=== PATIENT | female | born 1930 | race Two or more races ===

== ENCOUNTER → 2016-05-06 | Outpatient (CLI) | payer MEDICARE, OTHER ==
[~2016-05-06] MED LIST: AMLO5TAB2 PO; APIX2.5T OR; ASPI-498 PO; ASPI81CH43 PO; ATOR20TA50 PO; CHOLESTYRAMINE 4 GM POWDER ONE; CHOLESTYRAMINE 4 GM POWDER PO ONE; CLOP75TA41 PO; LISI40TA PO; NITR0.4S29 SL; OXYB5TAB62 PO; POTA-167 PO; RANI25TA PO
[2016-05-06 11:30] VITALS: BP 105/48
[2016-05-06 13:23] VITALS: BP 116/61
== END | disposition home or self-care (01) ==
LOC: CHF HDHVI 11:48
PROVIDERS: ATTEND Internal Medicine Cardiovascular Disease
DX: J44.9 Chronic obstructive pulmonary disease, unspecified (principal)
CPT/HCPCS: 93005; G0463; 93017

== ENCOUNTER → 2016-05-18 | Outpatient (CLI) | payer MEDICARE, OTHER ==
[~2016-05-18] MED LIST changes: -CHOLESTYRAMINE 4 GM POWDER ONE; -CHOLESTYRAMINE 4 GM POWDER PO ONE; +DEXAMETHASONE SOD PHOS 10MG/1ML VIAL INJ ONE; +FURO20TA3 PO; +MIDAZOLAM HCL 1MG/1ML-2 ML VIAL ONE; +ONDANSETRON HCL 4 MG/2 ML VIAL ONE; +fentaNYL CITRATE 100 MCG/2 ML VL ONE
== END | disposition home or self-care (01) ==
LOC: Rad HDHVI 11:58
PROVIDERS: ATTEND Internal Medicine Cardiovascular Disease
DX: R07.89 Other chest pain (principal); R06.02 Shortness of breath; R00.2 Palpitations; I10 Essential (primary) hypertension
CPT/HCPCS: 93306; J1100; J2250; J2405

== ENCOUNTER 2016-05-19 08:41 | Day surgery (SDC) | payer MEDICARE, OTHER ==
[2016-05-18 12:50] LABS: Basophils # (auto) 0 uL; Basophils % (auto) 0.7 % (0.0-2.0); Eosinophils # (auto) 0.2 uL; Eosinophils % (auto) 4.8 % (0.0-7.0); Hematocrit 36.3 % (36.0-46.0); Hemoglobin 11.3 g/dL (12.2-16.2); Lymphocytes # (auto) 1.2 uL; Lymphocytes % (auto) 24.1 % (10.0-50.0); Mean Corpuscular Hemoglobin 29.1 pg (28.0-32.0); Mean Corpuscular Hgb Conc. 31.2 g/dL (32.0-36.0); Mean Corpuscular Volume 93.2 fL (80.0-100.0); Mean Platelet Volume 8.9 fL (7.4-10.4); Monocytes # (auto) 0.3 uL; Monocytes % (auto) 5.9 % (0.0-12.0); Neutrophils # (auto) 3.1 uL; Neutrophils % (auto) 64.5 % (37.0-80.0); Platelet Count (auto) 324 10^3/uL (140-450); White Blood Cell 4.9 10^3/uL (4.4-10.8)
[2016-05-18 13:26] LABS: Albumin 4.1 g/dL (3.4-5.0); BUN/Creatinine Ratio 13.8; Bilirubin, Total 0.6 mg/dL (0.2-1.0); Potassium 3.9 mmol/L (3.5-5.1); Total Protein 7.3 g/dL (6.4-8.2)
[2016-05-18 14:07] LABS: INR 1.04 (0.9-1.15); Partial Thromboplastin Time 27.8 sec (22.64-33.71); Prothrombin Time 10.7 sec (9.37-12.3)
[~2016-05-19] VITALS: Ht 157.5 cm; Wt 59.0 kg
[~2016-05-19 08:41] MED LIST changes: -APIX2.5T OR; -ASPI-498 PO; -ASPI81CH43 PO; -ATOR20TA50 PO; -DEXAMETHASONE SOD PHOS 10MG/1ML VIAL INJ ONE; -MIDAZOLAM HCL 1MG/1ML-2 ML VIAL ONE; -ONDANSETRON HCL 4 MG/2 ML VIAL ONE; -OXYB5TAB62 PO; -RANI25TA PO; -fentaNYL CITRATE 100 MCG/2 ML VL ONE
[2016-05-19] MEDS ORDERED: CLINDAMYCIN 600MG IV 50 ML IV ONE (09:44)
[2016-05-19] MEDS ORDERED: BUPIVACAINE 0.75% INJ 10ML MPV SDV IJ ONE (09:57)
[2016-05-19] MEDS ORDERED: POVIDONE IODINE 10 % TOPICAL OINT 30GM TOP ONE (10:04)
[2016-05-19] MEDS ORDERED: BUPIVACAINE 0.75% INJ 30ML MPF VIAL IJ ONE (10:41)
[2016-05-19] MEDS ORDERED: HYDROmorphone HCL 2 MG/ML VL IV PRN (11:15)
[2016-05-19] MEDS ORDERED: ONDANSETRON HCL 4 MG/2 ML VIAL IV ONE (11:15)
[2016-05-19 11:46] VITALS: BP 118/57
== END 2016-05-19 11:52 | disposition home or self-care (01) ==
LOC: SUR 08:41
PROVIDERS: ATTEND Podiatrist Foot & Ankle Surgery
DX: L03.032 Cellulitis of left toe (principal); L03.031 Cellulitis of right toe; B48.8 Other specified mycoses; H44.9 Unspecified disorder of globe; I10 Essential (primary) hypertension; J43.9 Emphysema, unspecified; Z90.710 Acquired absence of both cervix and uterus; Z90.721 Acquired absence of ovaries, unilateral; F41.9 Anxiety disorder, unspecified; F32.9 Major depressive disorder, single episode, unspecified; Z87.891 Personal history of nicotine dependence; I26.99 Other pulmonary embolism without acute cor pulmonale
CPT/HCPCS: 11750; 28124; 36415; 80053; 85025; 85610; 85730; 88305; 88311; J3490; Q4139

== ENCOUNTER → 2016-06-07 | Outpatient (CLI) | payer MEDICARE, OTHER ==
[~2016-06-07] MED LIST changes: +ADENOSINE 50 MG in GIVE UN-DILUTED 0 ML IV SCH; +ADENOSINE 90 MG/30 ML INJ IV ONE
== END | disposition home or self-care (01) ==
LOC: Rad HDHVI 09:33
PROVIDERS: ATTEND Internal Medicine Cardiovascular Disease
DX: I25.10 Atherosclerotic heart disease of native coronary artery without angina pectoris (principal); I10 Essential (primary) hypertension; E78.00 Pure hypercholesterolemia, unspecified; J44.9 Chronic obstructive pulmonary disease, unspecified
CPT/HCPCS: 78452; 93017; 96374; A9500; J0153; G0463

== ENCOUNTER 2016-07-25 15:59 | Emergency (ER) | payer MEDICARE, OTHER ==
[~2016-07-25] VITALS: Ht 157.5 cm; Wt 56.7 kg
[~2016-07-25 15:59] MED LIST changes: -ADENOSINE 50 MG in GIVE UN-DILUTED 0 ML IV SCH; -ADENOSINE 90 MG/30 ML INJ IV ONE
[2016-07-25 16:06] VITALS: BP 111/56
[2016-07-25] MEDS ORDERED: BACITRACIN-POLYMYXIN B TOPICAL OINT UD TOP ONE ×2 (16:59→17:15)
== END 2016-07-25 17:07 | disposition home or self-care (01) ==
LOC: ER 15:59
DX: S61.216A Laceration without foreign body of right little finger without damage to nail, initial encounter (principal); I50.9 Heart failure, unspecified; Z98.61 Coronary angioplasty status; Z88.0 Allergy status to penicillin; Z88.1 Allergy status to other antibiotic agents; Z91.018 Allergy to other foods; W25.XXXA Contact with sharp glass, initial encounter; Y93.89 Activity, other specified; Y99.8 Other external cause status; Y92.89 Other specified places as the place of occurrence of the external cause; I48.91 Unspecified atrial fibrillation
CPT/HCPCS: 12002

== ENCOUNTER → 2016-10-27 | Outpatient (CLI) | payer MEDICARE, OTHER | END | disposition home or self-care (01) | LOC: Rad HDHVI 08:55 | PROVIDERS: ATTEND Internal Medicine Cardiovascular Disease | DX: M25.552 Pain in left hip (principal); M25.551 Pain in right hip ==

== ENCOUNTER → 2016-12-16 | Outpatient (CLI) | payer MEDICARE ==
[~2016-12-16] MED LIST changes: +CYANOCOBALAMIN (B-12) 1000 MCG/1 ML VIAL IM ONE; +CYANOCOBALAMIN (B-12) 1000 MCG/1 ML VIAL ONE; +MVI in SODIUM CHLORIDE 0.9% 1,000 ML IVB ONE; +MVI in SODIUM CHLORIDE 0.9% 1,010 ML ONE
[2016-12-16 13:58] LABS: Basophils # (auto) 0 uL; Basophils % (auto) 0.6 % (0.0-2.0); CONDITION Y; Eosinophils # (auto) 0.2 uL; Eosinophils % (auto) 3.3 % (0.0-7.0); Hematocrit 34.3 % (36.0-46.0); Hemoglobin 11.5 g/dL (12.2-16.2); Lymphocytes # (auto) 1.2 uL; Lymphocytes % (auto) 24.9 % (10.0-50.0); Mean Corpuscular Hemoglobin 31.4 pg (28.0-32.0); Mean Corpuscular Hgb Conc. 33.5 g/dL (32.0-36.0); Mean Corpuscular Volume 93.7 fL (80.0-100.0); Mean Platelet Volume 8.4 fL (7.4-10.4); Monocytes # (auto) 0.4 uL; Monocytes % (auto) 8.2 % (0.0-12.0); Platelet Count (auto) 305 10^3/uL (140-450); Red Cell Distribution Width 14.1 % (11.6-16.0); White Blood Cell 4.7 10^3/uL (4.4-10.8)
[2016-12-16 14:09] LABS: BUN/Creatinine Ratio 15.9; Calcium 9.1 mg/dL (8.5-10.1); Potassium 3.9 mmol/L (3.5-5.1)
[2016-12-16 15:45] VITALS: BP 134/66
== END | disposition home or self-care (01) ==
LOC: CHF HDHVI 13:06
PROVIDERS: ATTEND Internal Medicine Cardiovascular Disease
DX: R55 Syncope and collapse (principal); E86.0 Dehydration
CPT/HCPCS: 36415; 80048; 85025; 96365; 96366; G0463; J3411; J3420; J3475

== ENCOUNTER → 2016-12-24 | Outpatient (CLI) | payer MEDICARE ==
[~2016-12-24] MED LIST changes: -CYANOCOBALAMIN (B-12) 1000 MCG/1 ML VIAL IM ONE; -CYANOCOBALAMIN (B-12) 1000 MCG/1 ML VIAL ONE; -MVI in SODIUM CHLORIDE 0.9% 1,000 ML IVB ONE; -MVI in SODIUM CHLORIDE 0.9% 1,010 ML ONE
== END | disposition home or self-care (01) ==
LOC: Rad HDHVI 10:03
PROVIDERS: ATTEND Internal Medicine Cardiovascular Disease
DX: I25.119 Atherosclerotic heart disease of native coronary artery with unspecified angina pectoris (principal); R42 Dizziness and giddiness; J44.9 Chronic obstructive pulmonary disease, unspecified; Z95.5 Presence of coronary angioplasty implant and graft
CPT/HCPCS: 93306

== ENCOUNTER → 2016-12-31 | Outpatient (CLI) | payer MEDICARE ==
[~2016-12-31] MED LIST changes: +ADENOSINE 46 MG in GIVE UN-DILUTED 0 ML IV ONE; +ADENOSINE 90 MG/30 ML INJ IV ONE
== END | disposition home or self-care (01) ==
LOC: Rad HDHVI 08:46
PROVIDERS: ATTEND Internal Medicine Cardiovascular Disease
DX: I25.10 Atherosclerotic heart disease of native coronary artery without angina pectoris (principal); I11.0 Hypertensive heart disease with heart failure; I50.9 Heart failure, unspecified; E78.00 Pure hypercholesterolemia, unspecified; J44.9 Chronic obstructive pulmonary disease, unspecified; Z95.5 Presence of coronary angioplasty implant and graft
CPT/HCPCS: 78452; 93005; 96374; 96375; A9500; J0153

== ENCOUNTER → 2017-01-28 | Outpatient (CLI) | payer MEDICARE ==
[~2017-01-28] MED LIST changes: -ADENOSINE 46 MG in GIVE UN-DILUTED 0 ML IV ONE; -ADENOSINE 90 MG/30 ML INJ IV ONE
== END | disposition home or self-care (01) ==
LOC: Rad HDHVI 15:03
PROVIDERS: ATTEND Internal Medicine Cardiovascular Disease
DX: I05.0 Rheumatic mitral stenosis (principal); I06.0 Rheumatic aortic stenosis
CPT/HCPCS: 93306

== ENCOUNTER → 2017-02-09 | Outpatient (CLI) | payer MEDICARE ==
[~2017-02-09] MED LIST changes: +APIX2.5T OR; +ASPI81TA27 PO; +ATOR20TA50 PO; +OMEP40CA33 PO; +OXYB15TA12 PO; +RANI300T3 PO
[2017-02-09 12:40] VITALS: BP 131/62
[2017-02-09 16:24] LABS: INR 0.95 (0.9-1.15); Partial Thromboplastin Time 25.9 sec (22.64-33.71); Prothrombin Time 10.4 sec (9.37-12.3)
[2017-02-09 16:35] LABS: BUN/Creatinine Ratio 19.5; Potassium 4.1 mmol/L (3.5-5.1)
[2017-02-09 16:37] LABS: Basophils # (auto) 0.1 uL; Eosinophils # (auto) 0.2 uL; Hemoglobin 11.7 g/dL (12.2-16.2); Lymphocytes # (auto) 1.2 uL; Lymphocytes % (auto) 20.9 % (10.0-50.0); Mean Corpuscular Hemoglobin 31.3 pg (28.0-32.0); Mean Corpuscular Hgb Conc. 33.5 g/dL (32.0-36.0); Mean Corpuscular Volume 93.6 fL (80.0-100.0); Mean Platelet Volume 8.5 fL (6.9-10.8); Monocytes # (auto) 0.4 uL; Monocytes % (auto) 6.3 % (0.0-12.0); Neutrophils # (auto) 3.8 uL; Neutrophils % (auto) 67.8 % (37.0-80.0); Nucleated Red Blood Cells % 0.1 %; Platelet Count (auto) 292 10^3/uL (140-450); Red Cell Distribution Width 14.8 % (11.8-14.3); White Blood Cell 5.6 10^3/uL (4.4-10.8)
== END | disposition home or self-care (01) ==
LOC: RADONC 12:42
PROVIDERS: ATTEND Internal Medicine Cardiovascular Disease
DX: Z01.810 Encounter for preprocedural cardiovascular examination (principal); I10 Essential (primary) hypertension; D64.9 Anemia, unspecified; R79.1 Abnormal coagulation profile
CPT/HCPCS: 36415; 80048; 85025; 85610; 85730; 93005; G0463

== ENCOUNTER → 2017-02-10 | Day surgery (SDC) | payer MEDICARE ==
[~2017-02-10] VITALS: Ht 157.5 cm; Wt 54.4 kg
[~2017-02-10] MED LIST changes: +ANGIOMAX 250 MG VIAL IV ONE; +IOHEXOL 350 MG/ML 100ML IJ ONE; +LIDOCAINE 2%HCL (LOCAL ANESTH.) INJ 20ML MDV ONE; +MIDAZOLAM HCL 1MG/1ML-2 ML VIAL ONE; +SODIUM CHL 0.9% 0 ML ONE; +fentaNYL CITRATE 100 MCG/2 ML VL ONE
== END | disposition home or self-care (01) ==
LOC: CATH 08:59
PROVIDERS: ATTEND Internal Medicine Cardiovascular Disease
DX: I25.10 Atherosclerotic heart disease of native coronary artery without angina pectoris (principal); Z95.5 Presence of coronary angioplasty implant and graft; I10 Essential (primary) hypertension; J44.9 Chronic obstructive pulmonary disease, unspecified; R94.39 Abnormal result of other cardiovascular function study; E78.5 Hyperlipidemia, unspecified; J43.9 Emphysema, unspecified; Z90.710 Acquired absence of both cervix and uterus; Z90.721 Acquired absence of ovaries, unilateral; F41.9 Anxiety disorder, unspecified; F32.9 Major depressive disorder, single episode, unspecified; F10.99 Alcohol use, unspecified with unspecified alcohol-induced disorder; Z87.891 Personal history of nicotine dependence
CPT/HCPCS: 93458; C1769; C1887; C1894; J1644; J2250; J3010; J7030; Q9967

== ENCOUNTER 2017-05-20 16:53 | Inpatient (IN) | payer MEDICARE ==
[~2017-05-20] VITALS: Ht 157.5 cm; Wt 51.4 kg
[~2017-05-20 16:53] MED LIST changes: -KETOROLAC TROMETH 30 MG/ML 1ML VIAL IV ONE; -KETOROLAC TROMETH 60MG/2ML VIAL IM ONE; -MVI in SODIUM CHLORIDE 0.9% 1,000 ML IVB ONE; -MVI in SODIUM CHLORIDE 0.9% 1,010 ML ONE; -ONDANSETRON HCL 4 MG/2 ML VIAL IV ONE; -ONDANSETRON HCL 4 MG/2 ML VIAL ONE
[2017-05-20] MEDS ORDERED: MORPHINE SULFATE 4 MG/ML SYR/VIAL IV PRN (17:30)
[2017-05-20] MEDS ORDERED: ONDANSETRON HCL 4 MG/2 ML VIAL IV PRN (17:30)
[2017-05-20] MEDS ORDERED: NITROGLYCERIN 0.4 MG SL TAB SL PRN (17:30)
[2017-05-20] MEDS: D5W/SOD CHLO 0.9% 1,000 ML IV SCH (17:40)
[2017-05-20 17:48] VITALS: BP 131/74
[2017-05-20] MEDS: HYDROcodone-ACET 5/325MG TAB PO PRN (21:55)
[2017-05-20 22:00] VITALS: BP 133/61
[2017-05-21] MEDS: D5W/SOD CHLO 0.9% 1,000 ML IV SCH ×3 (03:31→22:51)
[2017-05-21 05:56] VITALS: BP 113/52
[2017-05-21 07:10] LABS: Basophils # (auto) 0.1 uL; Basophils % (auto) 1.2 % (0.0-2.0); Eosinophils # (auto) 0.3 uL; Eosinophils % (auto) 5.3 % (0.0-7.0); Hemoglobin 10.7 g/dL (12.2-16.2); Lymphocytes # (auto) 1.4 uL; Lymphocytes % (auto) 27.1 % (10.0-50.0); Mean Corpuscular Hemoglobin 30.5 pg (28.0-32.0); Mean Corpuscular Hgb Conc. 33.3 g/dL (32.0-36.0); Mean Corpuscular Volume 91.8 fL (80.0-100.0); Monocytes # (auto) 0.4 uL; Monocytes % (auto) 7.7 % (0.0-12.0); Neutrophils # (auto) 3.1 uL; Neutrophils % (auto) 58.7 % (37.0-80.0); Platelet Count (auto) 308 10^3/uL (140-450); Red Blood Cells 3.49 10^6/uL (4.0-5.20); Red Cell Distribution Width 13.8 % (11.8-14.3); White Blood Cell 5.3 10^3/uL (4.4-10.8)
[2017-05-21 07:31] LABS: BUN/Creatinine Ratio 20.3; Calcium 8.1 mg/dL (8.5-10.1); Potassium 3.6 mmol/L (3.5-5.1)
[2017-05-21] MEDS: CLOPIDOGREL BISULFATE 75 MG TAB PO SCH (09:12)
[2017-05-21] MEDS: amLODIPine BESYLATE 5 MG TAB PO SCH (09:12)
[2017-05-21] MEDS: LISINOPRIL 20 MG TAB PO SCH (09:12)
[2017-05-21 09:41] VITALS: BP 128/66
[2017-05-21] MEDS: DOCUSATE SOD 100 MG CAP PO PRN ×2 (10:59→22:51)
[2017-05-21] MEDS: HYDROcodone-ACET 5/325MG TAB PO PRN ×2 (12:10→19:47)
[2017-05-21 12:56] VITALS: BP 123/56
[2017-05-21 17:00] VITALS: BP 121/60
[2017-05-21] MEDS ORDERED: methylPREDNISolone SOD SUCC 125 MG/2 ML VL IV ONE (19:15)
[2017-05-21 22:00] VITALS: BP 147/67
[2017-05-22 05:35] VITALS: BP 134/64
[2017-05-22] MEDS: HYDROcodone-ACET 5/325MG TAB PO PRN ×3 (06:36→23:13)
[2017-05-22 08:00] VITALS: BP 124/56
[2017-05-22 09:00] VITALS: BP 124/56
[2017-05-22] MEDS: CLOPIDOGREL BISULFATE 75 MG TAB PO SCH (09:39)
[2017-05-22] MEDS: LISINOPRIL 20 MG TAB PO SCH (09:40)
[2017-05-22] MEDS: amLODIPine BESYLATE 5 MG TAB PO SCH (09:40)
[2017-05-22] MEDS: D5W/SOD CHLO 0.9% 1,000 ML IV SCH (09:41)
[2017-05-22 13:00] VITALS: BP 123/77
[2017-05-22 17:00] VITALS: BP 154/69
[2017-05-22 21:46] VITALS: BP 150/77
[2017-05-22] MEDS: DOCUSATE SOD 100 MG CAP PO PRN (23:18)
[2017-05-23 04:45] VITALS: BP 137/64
[2017-05-23] MEDS: HYDROcodone-ACET 5/325MG TAB PO PRN ×2 (08:03→21:10)
[2017-05-23 08:22] VITALS: BP 157/82
[2017-05-23 09:00] VITALS: BP 157/82
[2017-05-23] MEDS: CLOPIDOGREL BISULFATE 75 MG TAB PO SCH (09:37)
[2017-05-23] MEDS: amLODIPine BESYLATE 5 MG TAB PO SCH (09:37)
[2017-05-23] MEDS: LISINOPRIL 20 MG TAB PO SCH (09:38)
[2017-05-23 13:00] VITALS: BP 151/59
[2017-05-23 16:27] VITALS: BP 135/69
[2017-05-23] MEDS ORDERED: EPOETIN ALFA 4,000 UNIT/ML VL SC ONE ×2 (17:00→20:00)
[2017-05-23 17:48] LABS: Basophils # (auto) 0 uL; Basophils % (auto) 0.6 % (0.0-2.0); Eosinophils # (auto) 0.2 uL; Eosinophils % (auto) 2.6 % (0.0-7.0); Hematocrit 34.6 % (36.0-46.0); Hemoglobin 11.3 g/dL (12.2-16.2); Lymphocytes # (auto) 1.4 uL; Lymphocytes % (auto) 16.8 % (10.0-50.0); Mean Corpuscular Hemoglobin 29.5 pg (28.0-32.0); Mean Corpuscular Hgb Conc. 32.6 g/dL (32.0-36.0); Mean Corpuscular Volume 90.6 fL (80.0-100.0); Monocytes # (auto) 0.5 uL; Monocytes % (auto) 5.9 % (0.0-12.0); Neutrophils # (auto) 6.3 uL; Neutrophils % (auto) 74.1 % (37.0-80.0); Nucleated Red Blood Cells % 0.1 %; Platelet Count (auto) 362 10^3/uL (140-450); Red Blood Cells 3.82 10^6/uL (4.0-5.20); Red Cell Distribution Width 14.5 % (11.8-14.3); White Blood Cell 8.5 10^3/uL (4.4-10.8)
[2017-05-23 18:04] LABS: BUN/Creatinine Ratio 18.9; Calcium 8.5 mg/dL (8.5-10.1); Potassium 3.5 mmol/L (3.5-5.1)
[2017-05-23 21:40] VITALS: BP 131/70
[2017-05-24 04:35] VITALS: BP 142/69
[2017-05-24 09:00] VITALS: BP 123/66
[2017-05-24] MEDS: HYDROcodone-ACET 5/325MG TAB PO PRN ×2 (09:24→16:21)
[2017-05-24] MEDS: CLOPIDOGREL BISULFATE 75 MG TAB PO SCH (09:25)
[2017-05-24] MEDS: amLODIPine BESYLATE 5 MG TAB PO SCH (09:25)
[2017-05-24] MEDS: LISINOPRIL 20 MG TAB PO SCH (09:26)
[2017-05-24 13:00] VITALS: BP 110/60
[2017-05-24 13:10] VITALS: BP 123/66
[2017-05-24 17:00] VITALS: BP 142/69
== END 2017-05-24 17:29 | disposition home health service (06) | DRG 391 ==
LOC: TELE-CENTR 16:53 → CENTRAL 17:57
PROVIDERS: ADMIT Internal Medicine Cardiovascular Disease; ATTEND Internal Medicine Cardiovascular Disease
DX: K52.9 Noninfective gastroenteritis and colitis, unspecified (principal); J96.90 Respiratory failure, unspecified, unspecified whether with hypoxia or hypercapnia; E46 Unspecified protein-calorie malnutrition; E86.9 Volume depletion, unspecified; D64.9 Anemia, unspecified; J44.9 Chronic obstructive pulmonary disease, unspecified; E86.1 Hypovolemia; I10 Essential (primary) hypertension; M54.5 Low back pain; I25.10 Atherosclerotic heart disease of native coronary artery without angina pectoris; M19.90 Unspecified osteoarthritis, unspecified site; Z68.20 Body mass index [BMI] 20.0-20.9, adult; Z88.1 Allergy status to other antibiotic agents; Z88.0 Allergy status to penicillin; Z91.018 Allergy to other foods; Z87.891 Personal history of nicotine dependence
CPT/HCPCS: 36415; 72131; 73700; 80048; 80053; 83735; 85025; 87081; 96365; 96366; 96374; 96375; G0463; J1885; J2405; J7042

== ENCOUNTER → 2017-05-20 | Outpatient (CLI) | payer MEDICARE ==
[~2017-05-20] VITALS: Ht 30.5 cm; Wt 0.5 kg
[~2017-05-20] MED LIST changes: -ANGIOMAX 250 MG VIAL IV ONE; -FURO20TA3 PO; -IOHEXOL 350 MG/ML 100ML IJ ONE; +KETOROLAC TROMETH 30 MG/ML 1ML VIAL IV ONE; +KETOROLAC TROMETH 60MG/2ML VIAL IM ONE; -LIDOCAINE 2%HCL (LOCAL ANESTH.) INJ 20ML MDV ONE; -MIDAZOLAM HCL 1MG/1ML-2 ML VIAL ONE; +MVI in SODIUM CHLORIDE 0.9% 1,000 ML IVB ONE; +MVI in SODIUM CHLORIDE 0.9% 1,010 ML ONE; +ONDANSETRON HCL 4 MG/2 ML VIAL IV ONE; +ONDANSETRON HCL 4 MG/2 ML VIAL ONE; -POTA-167 PO; -SODIUM CHL 0.9% 0 ML ONE; -fentaNYL CITRATE 100 MCG/2 ML VL ONE
[2017-05-20 10:00] VITALS: BP 129/52
[2017-05-20 11:59] LABS: Basophils # (auto) 0 uL; Basophils % (auto) 0.7 % (0.0-2.0); Eosinophils # (auto) 0.2 uL; Eosinophils % (auto) 3.3 % (0.0-7.0); Hematocrit 34.3 % (36.0-46.0); Hemoglobin 11.3 g/dL (12.2-16.2); Lymphocytes # (auto) 0.8 uL; Lymphocytes % (auto) 12.3 % (10.0-50.0); Mean Corpuscular Hemoglobin 30.3 pg (28.0-32.0); Mean Corpuscular Hgb Conc. 32.9 g/dL (32.0-36.0); Mean Corpuscular Volume 91.9 fL (80.0-100.0); Monocytes # (auto) 0.4 uL; Monocytes % (auto) 5.8 % (0.0-12.0); Neutrophils # (auto) 5.2 uL; Neutrophils % (auto) 77.9 % (37.0-80.0); Nucleated Red Blood Cells % 0.1 %; Platelet Count (auto) 332 10^3/uL (140-450); Red Blood Cells 3.73 10^6/uL (4.0-5.20); Red Cell Distribution Width 13.8 % (11.8-14.3); White Blood Cell 6.6 10^3/uL (4.4-10.8)
[2017-05-20 12:13] LABS: Albumin 3.5 g/dL (3.4-5.0); BUN/Creatinine Ratio 18.8; Bilirubin, Total 0.4 mg/dL (0.2-1.0); Calcium 8.8 mg/dL (8.5-10.1); Magnesium 2.5 mg/dL (1.6-2.6); Potassium 4.3 mmol/L (3.5-5.1); Total Protein 6.9 g/dL (6.4-8.2)
[2017-05-20 15:51] VITALS: BP 140/55
== END | disposition home or self-care (01) ==
LOC: CHF HDHVI 09:54
PROVIDERS: ATTEND Internal Medicine Cardiovascular Disease
DX: E83.42 Hypomagnesemia (principal); I10 Essential (primary) hypertension; D64.9 Anemia, unspecified
CPT/HCPCS: 36415; 72131; 73700; 80053; 83735; 85025; 96365; 96366; 96374; 96375; G0463; J1885; J2405

== ENCOUNTER → 2017-06-06 | Outpatient (CLI) | payer MEDICARE ==
[2017-06-06 12:50] VITALS: BP 127/55
[2017-06-06 14:16] VITALS: BP 129/52
== END | disposition home or self-care (01) ==
LOC: Rad HDHVI 13:03
PROVIDERS: ATTEND Internal Medicine Cardiovascular Disease
DX: K57.30 Diverticulosis of large intestine without perforation or abscess without bleeding (principal); I70.0 Atherosclerosis of aorta; J84.10 Pulmonary fibrosis, unspecified; J43.9 Emphysema, unspecified; Z90.49 Acquired absence of other specified parts of digestive tract; Z91.81 History of falling
CPT/HCPCS: 74176; G0463

== ENCOUNTER → 2017-10-07 | Outpatient (CLI) | payer MEDICARE | END | disposition home or self-care (01) | LOC: Rad HDHVI 09:20 | PROVIDERS: ATTEND Internal Medicine Cardiovascular Disease | DX: M25.462 Effusion, left knee (principal); M85.88 Other specified disorders of bone density and structure, other site; M17.12 Unilateral primary osteoarthritis, left knee | CPT/HCPCS: 73562 ==

== ENCOUNTER → 2017-11-09 | Outpatient (CLI) | payer MEDICARE ==
[~2017-11-09] MED LIST changes: +AMLO5TAB13 PO; -AMLO5TAB2 PO; +KETOROLAC TROMETH 60MG/2ML VIAL IM ONE; +MVI in SODIUM CHLORIDE 0.9% 1,000 ML IVB ONE; +MVI in SODIUM CHLORIDE 0.9% 1,010 ML ONE
[2017-11-09 12:04] LABS: Basophils # (auto) 0 uL; Eosinophils # (auto) 0.1 uL; Eosinophils % (auto) 1.8 % (0.0-7.0); Hematocrit 33.3 % (36.0-46.0); Hemoglobin 11.1 g/dL (12.2-16.2); Lymphocytes # (auto) 0.8 uL; Lymphocytes % (auto) 16.7 % (10.0-50.0); Mean Corpuscular Hemoglobin 28.9 pg (28.0-32.0); Mean Corpuscular Hgb Conc. 33.3 g/dL (32.0-36.0); Mean Corpuscular Volume 86.9 fL (80.0-100.0); Monocytes # (auto) 0.4 uL; Monocytes % (auto) 8.6 % (0.0-12.0); Neutrophils # (auto) 3.5 uL; Neutrophils % (auto) 71.9 % (37.0-80.0); Platelet Count (auto) 342 10^3/uL (140-450); Red Blood Cells 3.84 10^6/uL (4.0-5.20); White Blood Cell 4.9 10^3/uL (4.4-10.8)
[2017-11-09 12:26] LABS: Albumin 3.3 g/dL (3.4-5.0); BUN/Creatinine Ratio 13.8; Bilirubin, Total 0.4 mg/dL (0.2-1.0); Calcium 8.6 mg/dL (8.5-10.1); Magnesium 2.5 mg/dL (1.6-2.6); Potassium 4.4 mmol/L (3.5-5.1); Total Protein 6.4 g/dL (6.4-8.2)
[2017-11-09 14:05] VITALS: BP 158/79
== END | disposition home or self-care (01) ==
LOC: CHF HDHVI 09:42
PROVIDERS: ATTEND Internal Medicine Cardiovascular Disease
DX: E86.0 Dehydration (principal); E83.40 Disorders of magnesium metabolism, unspecified; M17.12 Unilateral primary osteoarthritis, left knee; D64.9 Anemia, unspecified; I11.0 Hypertensive heart disease with heart failure; I50.9 Heart failure, unspecified; J44.9 Chronic obstructive pulmonary disease, unspecified; Z79.899 Other long term (current) drug therapy; Z87.891 Personal history of nicotine dependence; Z90.710 Acquired absence of both cervix and uterus
CPT/HCPCS: 36415; 80053; 83735; 85025; 96365; 96366; 96372; 96375; G0463; J1885; J3411; J3475

== ENCOUNTER → 2017-12-16 | Outpatient (CLI) | payer MEDICARE ==
[~2017-12-16] MED LIST changes: -AMLO5TAB13 PO; +AMLO5TAB2 PO; +IOHEXOL 350 MG/ML 100ML IJ ONE; -KETOROLAC TROMETH 60MG/2ML VIAL IM ONE; -MVI in SODIUM CHLORIDE 0.9% 1,000 ML IVB ONE; -MVI in SODIUM CHLORIDE 0.9% 1,010 ML ONE
[2017-12-16 11:10] VITALS: BP 120/54
[2017-12-16 11:45] VITALS: BP 147/78
== END | disposition home or self-care (01) ==
LOC: Rad HDHVI 10:59
PROVIDERS: ATTEND Internal Medicine Cardiovascular Disease
DX: I67.82 Cerebral ischemia (principal); M85.88 Other specified disorders of bone density and structure, other site; M17.12 Unilateral primary osteoarthritis, left knee; J44.9 Chronic obstructive pulmonary disease, unspecified; I11.0 Hypertensive heart disease with heart failure; I50.9 Heart failure, unspecified; Z87.891 Personal history of nicotine dependence; Z79.899 Other long term (current) drug therapy; Z90.710 Acquired absence of both cervix and uterus
CPT/HCPCS: 70470; 73700; 82565; G0463; Q9967

== ENCOUNTER → 2017-12-26 | Outpatient (CLI) | payer MEDICARE ==
[~2017-12-26] MED LIST changes: +AMLO5TAB13 PO; -AMLO5TAB2 PO; -IOHEXOL 350 MG/ML 100ML IJ ONE; +MVI in SODIUM CHLORIDE 0.9% 1,010 ML ONE; +MVI in SODIUM CHLORIDE 0.9% 500 ML IVB ONE
[2017-12-26 15:33] VITALS: BP 119/65
== END | disposition home or self-care (01) ==
LOC: CHF HDHVI 13:20
PROVIDERS: ATTEND Internal Medicine Cardiovascular Disease
DX: R55 Syncope and collapse (principal); R51 Headache; R42 Dizziness and giddiness; I11.0 Hypertensive heart disease with heart failure; I50.9 Heart failure, unspecified; I25.10 Atherosclerotic heart disease of native coronary artery without angina pectoris; J44.9 Chronic obstructive pulmonary disease, unspecified; M17.12 Unilateral primary osteoarthritis, left knee; Z87.891 Personal history of nicotine dependence; Z79.899 Other long term (current) drug therapy; Z90.710 Acquired absence of both cervix and uterus
CPT/HCPCS: 96365; 96366; G0463; J3411; J3475

== ENCOUNTER → 2018-02-16 | Outpatient (CLI) | payer MEDICARE ==
[~2018-02-16] VITALS: Ht 33 cm; Wt 0.5 kg
[~2018-02-16] MED LIST changes: +BACITRACIN TOP OINT 1 UD PKG TOP ONE; +CYANOCOBALAMIN (B-12) 1000 MCG/1 ML VIAL IM ONE; +CYANOCOBALAMIN (B-12) 1000 MCG/1 ML VIAL ONE; +KETOROLAC TROMETH 60MG/2ML VIAL IM ONE; -MVI in SODIUM CHLORIDE 0.9% 1,010 ML ONE; -MVI in SODIUM CHLORIDE 0.9% 500 ML IVB ONE
[2018-02-16 10:00] VITALS: BP 112/43
[2018-02-16 12:00] VITALS: BP 154/58
[2018-02-16 12:04] LABS: Basophils # (auto) 0 uL; Basophils % (auto) 0.1 % (0.0-2.0); Eosinophils # (auto) 0 uL; Eosinophils % (auto) 0.1 % (0.0-7.0); Hemoglobin 10.5 g/dL (12.2-16.2); Lymphocytes # (auto) 0.9 uL; Lymphocytes % (auto) 15.7 % (10.0-50.0); Mean Corpuscular Hemoglobin 27.9 pg (28.0-32.0); Mean Corpuscular Hgb Conc. 31.9 g/dL (32.0-36.0); Mean Corpuscular Volume 87.4 fL (80.0-100.0); Monocytes # (auto) 0.6 uL; Neutrophils # (auto) 4.4 uL; Neutrophils % (auto) 74.1 % (37.0-80.0); Nucleated Red Blood Cells % 0.1 %; Platelet Count (auto) 325 10^3/uL (140-450); Red Blood Cells 3.78 10^6/uL (4.0-5.20); Red Cell Distribution Width 16.8 % (11.8-14.3); White Blood Cell 5.9 10^3/uL (4.4-10.8)
[2018-02-16 12:18] LABS: BUN/Creatinine Ratio 22.2; Calcium 8.5 mg/dL (8.5-10.1); Magnesium 2.4 mg/dL (1.6-2.6); Potassium 3.7 mmol/L (3.5-5.1)
[2018-02-16 16:25] LABS: Urine Amorphous Crystal FEW /hpf (None Seen); Urine Bacteria FEW /hpf (None Seen); Urine Blood Negative /uL (Negative); Urine Mucus FEW (None Seen); Urine Specific Gravity 1.014 (1.001-1.035); Urine WBC 2 /hpf (0 - 5)
== END | disposition home or self-care (01) ==
LOC: CHF HDHVI 10:10
PROVIDERS: ATTEND Internal Medicine Cardiovascular Disease
DX: S91.011A Laceration without foreign body, right ankle, initial encounter (principal); S80.01XA Contusion of right knee, initial encounter; S80.11XA Contusion of right lower leg, initial encounter; I11.0 Hypertensive heart disease with heart failure; I50.9 Heart failure, unspecified; I25.10 Atherosclerotic heart disease of native coronary artery without angina pectoris; J44.9 Chronic obstructive pulmonary disease, unspecified; M17.12 Unilateral primary osteoarthritis, left knee; D64.9 Anemia, unspecified; E83.40 Disorders of magnesium metabolism, unspecified; N39.0 Urinary tract infection, site not specified; M79.18 Myalgia, other site; M79.631 Pain in right forearm; Z90.710 Acquired absence of both cervix and uterus; Z79.899 Other long term (current) drug therapy; Z87.891 Personal history of nicotine dependence; W18.39XA Other fall on same level, initial encounter; Y93.89 Activity, other specified; Y92.481 Parking lot as the place of occurrence of the external cause; Y99.8 Other external cause status
CPT/HCPCS: 36415; 80048; 81001; 83735; 85025; 87086; 96372; G0463; J1885; J3420

== ENCOUNTER → 2018-03-22 | Outpatient (CLI) | payer MEDICARE ==
[~2018-03-22] MED LIST changes: -BACITRACIN TOP OINT 1 UD PKG TOP ONE; -CYANOCOBALAMIN (B-12) 1000 MCG/1 ML VIAL IM ONE; -CYANOCOBALAMIN (B-12) 1000 MCG/1 ML VIAL ONE; -KETOROLAC TROMETH 60MG/2ML VIAL IM ONE
== END | disposition home or self-care (01) ==
LOC: Rad HDHVI 13:16
PROVIDERS: ATTEND Internal Medicine Cardiovascular Disease
DX: M17.12 Unilateral primary osteoarthritis, left knee (principal); M85.88 Other specified disorders of bone density and structure, other site; M25.462 Effusion, left knee; I70.8 Atherosclerosis of other arteries
CPT/HCPCS: 73562

== ENCOUNTER → 2018-05-08 | Outpatient (CLI) | payer MEDICARE ==
[~2018-05-08] VITALS: Ht 1 cm; Wt 1.0 kg
[~2018-05-08] MED LIST changes: +BACITRACIN TOP OINT 1 UD PKG TOP ONE
[2018-05-08 14:07] VITALS: BP 177/72
--- NOTE | 2018-05-08 14:07 | NUR ---
CHF PT HAD MECHANICAL FALL IN PARKING LOT AFTER LEAVING MD OFFICE FOR A SCHEDULED ECHO. FRONT COUNTER CHECKER STATED HEARD SOMEONE CALL FOR HELP OTHER PT ENTERED FRONT DOOR TO [facility]. CALL BY THUAN IN FRONT OFFICE ADVISED NURSE OF NEED FOR ASSIST. W/C TAKEN TO PARKING LOT AND SARAH RN MADE ASSESSMENT ALL BODY SYSTEMS AT FALL LOCATION, THAN AIDED PT TO WHEELCHAIR WITHOUT ANY WGHT BEARING TO R LEG PT STATED KNEE HURT. OBSERVABLE LACERATION ABOVE R EYE AND BRIDGE OF NOSE CUT, PT C/O R HAND PAIN ALSO SHE FELL ON R SIDE. PT STATES NO LOSS OF CONSCIOUSNESS. PT WAS ALERT AND ORIENTED, DENIES DIZZINESS OR TRIP, BUT DID NOT HAVE HER CANE OR WALKER WITH HER. STATED SHE DIDNT NEED IT.
--- NOTE | 2018-05-08 14:30 | NUR ---
CHF Clinic Provider Clinic Provider AMMON HUNT pt with new orders received and carried out. XRAY R ORBITAL PLATE, R KNEE AND R HAND per MD order. WD CARE TO LACERATION ABOVE R EYE, AND BRIDGE OF NOSE CUT. PT TO USE FWW SHE WAS ORDERED AND HAS IN THE HOME TO AVOID FURTHER FALLS.
--- NOTE | 2018-05-08 14:30 | NUR ---
CHF PT STATES PAIN TO ALL AFFECTED AREAS IS 5/10. ICE PACKS APPLIED TO AFFECTED AREAS TO AID IN SWELLING AND PAIN MANAGEMENT.
--- NOTE | 2018-05-08 15:00 | NUR ---
CHF XRAYS COMPLETE.
--- NOTE | 2018-05-08 15:30 | NUR ---
CHF PT AND HER DTR AND GRAND DTR CHAIRSIDE WITH DR. VERDE GOING OVER INCIDENT, CARE AND NEED FOR USE OF ASSISTIVE AMBULATORY DEVICES PT HAS IN HER HOME IE CANE AND FWW. PT STILL VERY ADAMANT THAT SHE DOESN'T NEED THOSE DEVICES BUT DID SAY , I HEARD YOU TO DR. VERDE. FAMILY VERB UNDERSTANDING AND STATES WILL MAKE HER USE FWW FROM NOW ON.
[2018-05-08 16:30] VITALS: BP 151/55
--- NOTE | 2018-05-08 16:30 | NUR ---
CHF Wound Care Wound care provided per MD order. Patient tolerated well and verbalized dressing care instructions. Follow up in clinic as directed. See e-MAR for medications given during this visit. PT STAES PAIN DECREASED TO 2/10 ICE HELPED SHE SAID, STILL STINGS BUT IS BETTER THAN WHEN IT HAPPENED. Discharge Instructions See e-MAR for any mediations given with this visit. Patient education given on disease process. KEEP STERI STRIPS IN PLACE THEY WILL FALL OFF ON THIER OWN. NURSE WILL CALL PT TOMORROW TO SEE HOW SHE IS FEELING. Patient verbalized understanding. Previous labs reviewed. Patient discharged in stable condition with after care instructions and follow up appointment.
--- NOTE | 2018-05-09 10:18 | NUR ---
CHF CALL TO PT HOME TO SEE HOW SHES FEELING TODAY AFTER HER FALL YESTERDAY IN PARKING LOT. ELEUTERIO STATES SHE WAS DOING WELL, UP WALKING AROUND. A LITTLE SORE BUT GOOD. NOSE AND EYE LACERATION NOT BLEEDING . STERI STRIPS IN PLACE. HAND SORE BUT USEABLE. PT DTR OFF TODAY TO CARE FOR PT NEEDS AT HOME.
== END | disposition home or self-care (01) ==
LOC: Rad HDHVI 12:57
PROVIDERS: ATTEND Internal Medicine Cardiovascular Disease
DX: I08.1 Rheumatic disorders of both mitral and tricuspid valves (principal); M25.561 Pain in right knee; M13.841 Other specified arthritis, right hand; I77.6 Arteritis, unspecified; Z91.81 History of falling
CPT/HCPCS: 70140; 73130; 73562; 93306; G0463

== ENCOUNTER → 2018-05-10 | Outpatient (CLI) | payer MEDICARE ==
[2018-05-10] VITALS (7 sets, daily range): BP systolic 114–156; BP diastolic 55–73
[~2018-05-10] MED LIST changes: -BACITRACIN TOP OINT 1 UD PKG TOP ONE; +MULTIPLE VITAMIN 10 ML, MAGNESIUM SULF SDV 50% 8 MEQ in SODIUM CHLORIDE 0.9% 1,000 ML IV ONE; +MVI in SODIUM CHLORIDE 0.9% 1,010 ML ONE
--- NOTE | 2018-05-10 10:18 | NUR ---
IV insertion IV access obtained, via clean sterile technique by inserting 22 gauge catheter at after attempt(s). IV secured properly. No trauma to site. Patient tolerated procedure well. PLACED BY JOSHUA TATE.
--- NOTE | 2018-05-10 10:35 | NUR ---
START MVI BAG AT 200 ML/HR.
[2018-05-10 12:14] LABS: Basophils # (auto) 0 uL; Basophils % (auto) 0.8 % (0.0-2.0); Eosinophils # (auto) 0.2 uL; Eosinophils % (auto) 4.3 % (0.0-7.0); Hematocrit 31.7 % (36.0-46.0); Hemoglobin 10.2 g/dL (12.2-16.2); Lymphocytes # (auto) 1.2 uL; Lymphocytes % (auto) 21.9 % (10.0-50.0); Mean Corpuscular Hemoglobin 27.1 pg (28.0-32.0); Mean Corpuscular Hgb Conc. 32.1 g/dL (32.0-36.0); Mean Corpuscular Volume 84.5 fL (80.0-100.0); Monocytes # (auto) 0.4 uL; Monocytes % (auto) 7.3 % (0.0-12.0); Neutrophils # (auto) 3.7 uL; Neutrophils % (auto) 65.7 % (37.0-80.0); Platelet Count (auto) 355 10^3/uL (140-450); Red Blood Cells 3.75 10^6/uL (4.0-5.20); Red Cell Distribution Width 16.6 % (11.8-14.3); White Blood Cell 5.7 10^3/uL (4.4-10.8)
[2018-05-10 12:21] LABS: Calcium 8.6 mg/dL (8.5-10.1); Chloride 105 mmol/L (98-107); Potassium 4.2 mmol/L (3.5-5.1); Sodium 137 mmol/L (136-145)
[2018-05-10 12:25] LABS: Anion Gap 7 (5-15); BUN/Creatinine Ratio 19.6; Blood Urea Nitrogen 19 mg/dL (7-18); Carbon Dioxide 25 mmol/L (21-32); GFR African American > 60 mL/min; GFR Non-African American 58 mL/min; Glucose 169 mg/dL (74-106); Magnesium 2.4 mg/dL (1.6-2.6)
--- NOTE | 2018-05-10 15:10 | NUR ---
MVI INFUSION COMPLETED. TOLERATED WELL. AFFECT CHEERFUL AND COOPERATIVE.
--- NOTE | 2018-05-10 15:30 | NUR ---
IV removal IV DC'd with sterile technique, catheter fully intact. Pressure dressing applied to site. Patient tolerated procedure well. Discharged with aftercare instructions per MD. DISCHARGED TO CARE OF GRANDDAUGHTER IN NO DISTRESS OR DISCOMFORT.
== END | disposition home or self-care (01) ==
LOC: CHF HDHVI 10:22
PROVIDERS: ATTEND Internal Medicine Cardiovascular Disease
DX: E83.40 Disorders of magnesium metabolism, unspecified (principal); D64.9 Anemia, unspecified; I11.0 Hypertensive heart disease with heart failure; I25.10 Atherosclerotic heart disease of native coronary artery without angina pectoris; I48.91 Unspecified atrial fibrillation; I50.42 Chronic combined systolic (congestive) and diastolic (congestive) heart failure; I70.0 Atherosclerosis of aorta; E78.5 Hyperlipidemia, unspecified; E78.00 Pure hypercholesterolemia, unspecified; J43.9 Emphysema, unspecified; M17.12 Unilateral primary osteoarthritis, left knee; F41.9 Anxiety disorder, unspecified; Z79.02 Long term (current) use of antithrombotics/antiplatelets; Z95.5 Presence of coronary angioplasty implant and graft; Z79.01 Long term (current) use of anticoagulants; Z87.891 Personal history of nicotine dependence; Z79.899 Other long term (current) drug therapy; Z86.711 Personal history of pulmonary embolism
CPT/HCPCS: 36415; 80048; 82306; 83735; 85025; 96365; 96366; G0463; J3411; J3475

== ENCOUNTER → 2018-05-15 | Outpatient (CLI) | payer MEDICARE ==
[~2018-05-15] MED LIST changes: -MULTIPLE VITAMIN 10 ML, MAGNESIUM SULF SDV 50% 8 MEQ in SODIUM CHLORIDE 0.9% 1,000 ML IV ONE; -MVI in SODIUM CHLORIDE 0.9% 1,010 ML ONE
[2018-05-15 14:14] VITALS: BP 111/63
--- NOTE | 2018-05-15 14:14 | NUR ---
CHF PT TO [facility] POST FALL FOLLOW UP TO REEVAL LACERATION ABOVE R EYE AND C/O BILAT RYLEE WEAVER Addendum: 05/15/18 at 1621 by Viviana Schwarz RN [place] EYES.
[2018-05-15 15:00] VITALS: BP 111/63
--- NOTE | 2018-05-15 16:22 | NUR ---
CHF Clinic Provider Clinic Provider DR. VERDE pt with new orders received and carried out. CALL INTO PHARMACY NEOMYCIN/POLYMYXIN B /HYDROCORTISONE OPHTHALMIC 1 GTT EACH EYE Q 4 HR , DURING WAKING HOURS X 3 DAYS, FOR BILAT EYE INFECTION per MD order.
== END | disposition home or self-care (01) ==
LOC: CHF HDHVI 14:17
PROVIDERS: ATTEND Internal Medicine Cardiovascular Disease
DX: I25.10 Atherosclerotic heart disease of native coronary artery without angina pectoris (principal); E78.5 Hyperlipidemia, unspecified; Z95.5 Presence of coronary angioplasty implant and graft
CPT/HCPCS: G0463

== ENCOUNTER → 2018-06-12 | Outpatient (CLI) | payer MEDICARE | END | disposition home or self-care (01) | LOC: Rad HDHVI 11:53 | PROVIDERS: ATTEND Internal Medicine Cardiovascular Disease | DX: M19.011 Primary osteoarthritis, right shoulder (principal); M85.811 Other specified disorders of bone density and structure, right shoulder; I70.0 Atherosclerosis of aorta | CPT/HCPCS: 73030 ==

== ENCOUNTER → 2018-07-27 | Outpatient (CLI) | payer MEDICARE ==
[2018-07-28 11:59] LABS: Basophils # (auto) 0.1 uL; Eosinophils # (auto) 0.1 uL; Hemoglobin 9.1 g/dL (12.2-16.2); Lymphocytes # (auto) 1.4 uL; Monocytes # (auto) 0.4 uL
[2018-07-28 12:03] LABS: Basophils % (auto) 1.1 % (0.0-2.0); Eosinophils % (auto) 1.3 % (0.0-7.0); Hematocrit 30.2 % (36.0-46.0); Lymphocytes % (auto) 26.8 % (10.0-50.0); Mean Corpuscular Hemoglobin 25.7 pg (28.0-32.0); Mean Corpuscular Volume 85.5 fL (80.0-100.0); Monocytes % (auto) 7.4 % (0.0-12.0); Neutrophils # (auto) 3.4 uL; Neutrophils % (auto) 63.4 % (37.0-80.0); Nucleated Red Blood Cells % 0.2 %; Platelet Count (auto) 445 10^3/uL (140-450); Red Blood Cells 3.53 10^6/uL (4.0-5.20); Red Cell Distribution Width 19.9 % (11.8-14.3); White Blood Cell 5.3 10^3/uL (4.4-10.8)
[2018-07-28 12:14] LABS: BUN/Creatinine Ratio 20.4; Potassium 4.8 mmol/L (3.5-5.1)
== END | disposition home or self-care (01) ==
LOC: LAB 15:25
PROVIDERS: ATTEND Internal Medicine Cardiovascular Disease
DX: D64.9 Anemia, unspecified (principal); I11.0 Hypertensive heart disease with heart failure; I50.9 Heart failure, unspecified
CPT/HCPCS: 36415; 80048; 83880; 85025

== ENCOUNTER → 2018-08-16 | Outpatient (CLI) | payer MEDICARE ==
[~2018-08-16] MED LIST changes: +AMLO2.5T6 PO; +HYDR-4683 PO; +MULTIPLE VITAMIN 10 ML, MAGNESIUM SULF SDV 50% 8 MEQ, THIAMINE INJ 100 MG in SODIUM CHL... IV SCH; +MVI in SODIUM CHLORIDE 0.9% 1,010 ML ONE
[2018-08-16 13:00] VITALS: BP 124/53
--- NOTE | 2018-08-16 13:00 | NUR ---
CHF PT ARRIVED AT THE CHF CLINIC FOR TX/EVAL FOR FATIGUE NO ENERGY TIMES 1 WEEK. V/S OBTAINED PT ALERT AND ORIENTED 0 DISTRESS
--- NOTE | 2018-08-16 13:40 | NUR ---
IV insertion IV access obtained, via clean sterile technique by inserting 22 gauge catheter at after attempt(s). IV secured properly. No trauma to site. Patient tolerated procedure well.
--- NOTE | 2018-08-16 15:45 | NUR ---
Clinic Provider Clinic Provider into see pt THERAPY CONTINUED.
--- NOTE | 2018-08-16 16:55 | NUR ---
IV removal IV DC'd with sterile technique, catheter fully intact. Pressure dressing applied to site. Patient tolerated procedure well. Discharged with aftercare instructions per MD. NOTE:
[2018-08-16 17:00] VITALS: BP 148/56
--- NOTE | 2018-08-16 17:05 | NUR ---
Discharge Instructions See e-MAR for any mediations given with this visit. Patient education given on disease process. Patient verbalized understanding. Previous labs reviewed. Patient discharged in stable condition with after care instructions and follow up appointment. MEDICATIONS 1345 START TIME BANANA BAG 500ML IV X 1 1645 STOP TIME BANANA BAG
== END | disposition home or self-care (01) ==
LOC: CHF HDHVI 13:17
PROVIDERS: ATTEND Internal Medicine Cardiovascular Disease
DX: E86.0 Dehydration (principal); R53.83 Other fatigue; I11.0 Hypertensive heart disease with heart failure; I50.9 Heart failure, unspecified
CPT/HCPCS: 96365; 96366; G0463; J3411; J3475; J7040

== ENCOUNTER → 2018-11-06 | Outpatient (CLI) | payer MEDICARE ==
[~2018-11-06] MED LIST changes: -AMLO2.5T6 PO; +AMLO2.5T7 PO; -AMLO5TAB13 PO; +AMLO5TAB15 PO; -ASPI81TA27 PO; -ATOR20TA50 PO; -CLOP75TA41 PO; -HYDR-4683 PO; +HYDR-4833 PO; +IOHEXOL 350 MG/ML 100ML IJ ONE; -MULTIPLE VITAMIN 10 ML, MAGNESIUM SULF SDV 50% 8 MEQ, THIAMINE INJ 100 MG in SODIUM CHL... IV SCH; -MVI in SODIUM CHLORIDE 0.9% 1,010 ML ONE; -NITR0.4S29 SL; -RANI300T3 PO
[2018-11-06 11:40] VITALS: BP 146/59
--- NOTE | 2018-11-06 11:40 | NUR ---
PT. TO CLINIC FROM BACK OFFICE FOR CT OF CHEST POST HOSP. MD ORDERS RECEIVED AND CARRIED OUT.
--- NOTE | 2018-11-06 11:50 | NUR ---
IV insertion IV access obtained, via clean sterile technique by inserting 22 gauge catheter at after attempt(s). IV secured properly. No trauma to site. Patient tolerated procedure well. STAT LAB SENT.
--- NOTE | 2018-11-06 13:00 | NUR ---
PT. TO AND FROM CT. TOLERATED PROCEDURE WELL, WITH NO C/O.
[2018-11-06 13:20] VITALS: BP 148/74
--- NOTE | 2018-11-06 13:20 | NUR ---
IV removal IV DC'd with sterile technique, catheter fully intact. Pressure dressing applied to site. Patient tolerated procedure well. Discharged with aftercare instructions per MD. NOTE: PT. INSTRUCTED TO INCREASE WATER INTAKE FOR NEXT 24 HRS.
--- NOTE | 2018-11-06 13:21 | NUR ---
NOTES: CLINIC VISIT CHARGE
[2018-11-06 16:00] LABS: Basophils # (auto) 0 uL; Basophils % (auto) 0.9 % (0.0-2.0); Eosinophils # (auto) 0.1 uL; Hematocrit 30.8 % (36.0-46.0); Hemoglobin 9.3 g/dL (12.2-16.2); Mean Corpuscular Hemoglobin 24.1 pg (28.0-32.0); Mean Corpuscular Hgb Conc. 30.1 g/dL (32.0-36.0); Red Cell Distribution Width 19.8 % (11.8-14.3); White Blood Cell 4.5 10^3/uL (4.4-10.8)
[2018-11-06 16:05] LABS: Eosinophils % (auto) 1.5 % (0.0-7.0); Lymphocytes % (auto) 22.2 % (10.0-50.0); Monocytes # (auto) 0.2 uL; Neutrophils # (auto) 3.2 uL; Neutrophils % (auto) 70.4 % (37.0-80.0); Platelet Count (auto) 389 10^3/uL (140-450); Red Blood Cells 3.85 10^6/uL (4.0-5.20)
[2018-11-06 16:06] LABS: Calcium 9.1 mg/dL (8.5-10.1); Potassium 3.9 mmol/L (3.5-5.1)
[2018-11-06 16:07] LABS: BUN/Creatinine Ratio 14.8
== END | disposition home or self-care (01) ==
LOC: Rad HDHVI 11:17
PROVIDERS: ATTEND Internal Medicine Cardiovascular Disease
DX: J43.9 Emphysema, unspecified (principal); R94.4 Abnormal results of kidney function studies; D64.9 Anemia, unspecified; R91.8 Other nonspecific abnormal finding of lung field; I25.10 Atherosclerotic heart disease of native coronary artery without angina pectoris; I11.0 Hypertensive heart disease with heart failure; I50.9 Heart failure, unspecified
CPT/HCPCS: 36415; 71260; 80048; 82565; 85025; G0463; Q9967

== ENCOUNTER → 2018-11-20 | Outpatient (CLI) | payer MEDICARE ==
[~2018-11-20] MED LIST changes: -IOHEXOL 350 MG/ML 100ML IJ ONE; +NITR0.4S29 SL; +OMEP-335 PO; +OXYB5TAB61 PO; +POTA1TAB61 PO
[2018-11-20 08:35] VITALS: BP 128/43
[2018-11-20 09:04] VITALS: BP 144/57
--- NOTE | 2018-11-20 09:04 | NUR ---
Pre-Op Discharge Summary: See e-MAR for any medications given for this visit. Pre-op orders received and carried out per MD of EKG, LABS and prescription for chest xrays. Patient given a copy of EKG with instructions to go to [facility] out patient for further follow up care.
[2018-11-20 12:30] LABS: INR < 0.93 (0.9-1.15)
[2018-11-20 12:35] LABS: Eosinophils # (auto) 0.2 uL; Lymphocytes # (auto) 1.3 uL; Monocytes # (auto) 0.3 uL
[2018-11-20 12:42] LABS: Basophils # (auto) 0 uL; Basophils % (auto) 1.1 % (0.0-2.0); Eosinophils % (auto) 3.7 % (0.0-7.0); Hematocrit 35.1 % (36.0-46.0); Hemoglobin 10.7 g/dL (12.2-16.2); Lymphocytes % (auto) 28.7 % (10.0-50.0); Mean Corpuscular Hemoglobin 26.3 pg (28.0-32.0); Mean Corpuscular Hgb Conc. 30.5 g/dL (32.0-36.0); Mean Corpuscular Volume 86.2 fL (80.0-100.0); Monocytes % (auto) 7.4 % (0.0-12.0); Neutrophils # (auto) 2.6 uL; Neutrophils % (auto) 59.1 % (37.0-80.0); Nucleated Red Blood Cells % 0.1 %; Platelet Count (auto) 281 10^3/uL (140-450); Red Blood Cells 4.07 10^6/uL (4.0-5.20); White Blood Cell 4.4 10^3/uL (4.4-10.8)
[2018-11-20 12:49] LABS: Red Cell Distribution Width 27.5 % (11.8-14.3)
[2018-11-20 14:06] LABS: BUN/Creatinine Ratio 18.5; Calcium 9.2 mg/dL (8.5-10.1); Potassium 4.5 mmol/L (3.5-5.1)
== END | disposition home or self-care (01) ==
LOC: Rad HDHVI 08:10
PROVIDERS: ATTEND Internal Medicine Cardiovascular Disease
DX: Z01.818 Encounter for other preprocedural examination (principal); D64.9 Anemia, unspecified; R79.1 Abnormal coagulation profile; I11.0 Hypertensive heart disease with heart failure; I50.9 Heart failure, unspecified; R94.31 Abnormal electrocardiogram [ECG] [EKG]
CPT/HCPCS: 36415; 80048; 85025; 85610; 85730; 93005; G0463

== ENCOUNTER 2018-11-21 11:22 | Day surgery (SDC) | payer MEDICARE ==
[~2018-11-21] VITALS: Ht 157.5 cm; Wt 49.9 kg
[~2018-11-21 11:22] MED LIST changes: -OMEP40CA33 PO; -OXYB15TA12 PO
[2018-11-21] MEDS ORDERED: MIDAZOLAM HCL 1MG/1ML-2 ML VIAL IV ONE (12:00)
== END 2018-11-21 15:25 | disposition home or self-care (01) ==
LOC: CATH 11:22
PROVIDERS: ATTEND Internal Medicine Cardiovascular Disease
DX: I35.0 Nonrheumatic aortic (valve) stenosis (principal); I10 Essential (primary) hypertension; I25.10 Atherosclerotic heart disease of native coronary artery without angina pectoris; J43.9 Emphysema, unspecified; M19.90 Unspecified osteoarthritis, unspecified site; E78.5 Hyperlipidemia, unspecified; Z86.73 Personal history of transient ischemic attack (TIA), and cerebral infarction without residual deficits; Z87.891 Personal history of nicotine dependence; Z90.49 Acquired absence of other specified parts of digestive tract; Z90.710 Acquired absence of both cervix and uterus; Z98.890 Other specified postprocedural states; Z95.818 Presence of other cardiac implants and grafts; Z96.651 Presence of right artificial knee joint; Z88.0 Allergy status to penicillin; Z88.2 Allergy status to sulfonamides; Z91.018 Allergy to other foods; Z79.899 Other long term (current) drug therapy
CPT/HCPCS: 93312; J2250; J7030; 99152; A4565

== ENCOUNTER → 2019-03-12 | Outpatient (CLI) | payer MEDICARE ==
[2019-03-12 15:54] LABS: Basophils # (auto) 0.1 uL; Basophils % (auto) 1.3 % (0.0-2.0); Eosinophils # (auto) 0.1 uL; Eosinophils % (auto) 0.9 % (0.0-7.0); Hematocrit 37.8 % (36.0-46.0); Hemoglobin 12.7 g/dL (12.2-16.2); Lymphocytes # (auto) 1.5 uL; Lymphocytes % (auto) 26.7 % (10.0-50.0); Mean Corpuscular Hgb Conc. 33.5 g/dL (32.0-36.0); Mean Corpuscular Volume 92.6 fL (80.0-100.0); Monocytes # (auto) 0.5 uL; Monocytes % (auto) 8.3 % (0.0-12.0); Neutrophils # (auto) 3.6 uL; Neutrophils % (auto) 62.8 % (37.0-80.0); Nucleated Red Blood Cells % 0.1 %; Platelet Count (auto) 303 10^3/uL (140-450); Red Blood Cells 4.08 10^6/uL (4.0-5.20); White Blood Cell 5.7 10^3/uL (4.4-10.8)
[2019-03-12 15:59] LABS: BUN/Creatinine Ratio 13.9; Potassium 3.9 mmol/L (3.5-5.1)
[2019-03-12 16:07] LABS: Red Cell Distribution Width 20.2 % (11.8-14.3)
== END | disposition home or self-care (01) ==
LOC: LAB 12:43
PROVIDERS: ATTEND Internal Medicine Cardiovascular Disease
DX: D64.9 Anemia, unspecified (principal); I11.0 Hypertensive heart disease with heart failure; I50.9 Heart failure, unspecified; J44.9 Chronic obstructive pulmonary disease, unspecified; E78.5 Hyperlipidemia, unspecified
CPT/HCPCS: 36415; 80048; 85025

== ENCOUNTER → 2019-04-16 | Outpatient (CLI) | payer MEDICARE | END | disposition home or self-care (01) | LOC: Rad HDHVI 13:03 | PROVIDERS: ATTEND Internal Medicine Cardiovascular Disease | DX: M81.0 Age-related osteoporosis without current pathological fracture (principal); Q74.2 Other congenital malformations of lower limb(s), including pelvic girdle | CPT/HCPCS: 73610 ==

== ENCOUNTER → 2019-06-20 | Outpatient (CLI) | payer MEDICARE | END | disposition home or self-care (01) | LOC: Rad HDHVI 11:42 | PROVIDERS: ATTEND Internal Medicine Cardiovascular Disease | DX: S22.39XA Fracture of one rib, unspecified side, initial encounter for closed fracture (principal); I70.0 Atherosclerosis of aorta; J98.11 Atelectasis; M85.88 Other specified disorders of bone density and structure, other site; R06.02 Shortness of breath; X58.XXXA Exposure to other specified factors, initial encounter; Y93.89 Activity, other specified; Y92.89 Other specified places as the place of occurrence of the external cause; Y99.8 Other external cause status | CPT/HCPCS: 71046 ==

== ENCOUNTER → 2019-07-10 | Outpatient (CLI) | payer MEDICARE | END | disposition home or self-care (01) | LOC: LAB 10:07 | PROVIDERS: ATTEND Internal Medicine Cardiovascular Disease | DX: R94.4 Abnormal results of kidney function studies (principal) | CPT/HCPCS: 36415; 82565 ==

== ENCOUNTER → 2019-07-11 | Outpatient (CLI) | payer MEDICARE ==
[~2019-07-11] MED LIST changes: +IOHEXOL 350 MG/ML 100ML IJ ONE
[2019-07-11 13:08] VITALS: BP 143/89
--- NOTE | 2019-07-11 13:08 | NUR ---
CHF PT ARRIVED AT CLINIC FOR CT OF THE CHEST PER MD ORDER HX OF LUNG MASS. A/O X 4 0 DISTRESS VSS
--- NOTE | 2019-07-11 13:20 | NUR ---
IV insertion IV access obtained, via clean sterile technique by inserting 22 gauge catheter at RAC after 1 attempt(s). IV secured properly. No trauma to site. Patient tolerated procedure well. PLACED BY TOMY TATE
--- NOTE | 2019-07-11 13:40 | NUR ---
CT SCAN PT WALKED TO AND FROM CT SCAN WITH GUEST SERVICES ATTENDANT TOLERATED WELL 0 DISTRESS
--- NOTE | 2019-07-11 14:08 | NUR ---
ULTRASOUND PT WALKED TO AND FROM U/S WITH SLASHER RUNNER TOLERATED WELL
[2019-07-11 14:25] VITALS: BP 146/84
--- NOTE | 2019-07-11 14:25 | NUR ---
IV removal IV DC'd with sterile technique, catheter fully intact. Pressure dressing applied to site. Patient tolerated procedure well. Discharged with aftercare instructions per MD. NOTE: BY TOMY TATE
--- NOTE | 2019-07-11 14:28 | NUR ---
Discharge Instructions See e-MAR for any mediations given with this visit. Patient education given on disease process. Patient verbalized understanding. Previous labs reviewed. Patient discharged in stable condition with after care instructions and follow up appointment.
[2019-07-12 14:51] VITALS: BP 143/89
== END | disposition home or self-care (01) ==
LOC: Rad HDHVI 13:07
PROVIDERS: ATTEND Internal Medicine Cardiovascular Disease
DX: I26.99 Other pulmonary embolism without acute cor pulmonale (principal); R91.8 Other nonspecific abnormal finding of lung field; I10 Essential (primary) hypertension; R06.02 Shortness of breath; R53.83 Other fatigue; I25.10 Atherosclerotic heart disease of native coronary artery without angina pectoris; M19.90 Unspecified osteoarthritis, unspecified site; J44.9 Chronic obstructive pulmonary disease, unspecified; R59.1 Generalized enlarged lymph nodes; K76.89 Other specified diseases of liver; M48.8X4 Other specified spondylopathies, thoracic region; Z90.49 Acquired absence of other specified parts of digestive tract; Z90.710 Acquired absence of both cervix and uterus
CPT/HCPCS: 71260; 93306; G0463; Q9967

== ENCOUNTER → 2019-09-13 | Outpatient (CLI) | payer MEDICARE ==
[~2019-09-13] MED LIST changes: +ASPirin 81 mg TAB ONE; -IOHEXOL 350 MG/ML 100ML IJ ONE; +KETOROLAC TROMETH 30 MG/ML 1ML VIAL IV ONE; +KETOROLAC TROMETH 60MG/2ML VIAL ONE; +MULTIPLE VIT 10 ML IV ONE; +MVI in SODIUM CHLORIDE 0.9% 500 ML IVB ONE; +levoFLOXacin 500MG 100 ML IV ONE
[2019-09-13 12:02] VITALS: BP 127/61
[2019-09-13 13:41] LABS: Basophils # (auto) 0.1 10 ^3/uL (0-0.2); Basophils % (auto) 1.2 % (0.0-2.0); Eosinophils # (auto) 0.3 10 ^3/uL (0-0.8); Hemoglobin 11.9 g/dL (12.2-16.2); Lymphocytes # (auto) 1.4 10 ^3/uL (0.4-5.4); Lymphocytes % (auto) 23.1 % (10.0-50.0); Mean Corpuscular Hemoglobin 30.5 pg (28.0-32.0); Mean Corpuscular Volume 92.4 fL (80.0-100.0); Monocytes # (auto) 0.4 10 ^3/uL (0-1.3); Monocytes % (auto) 6.1 % (0.0-12.0); Neutrophils % (auto) 64.6 % (37.0-80.0); Nucleated Red Blood Cells % 0.1 %; Platelet Count (auto) 364 10^3/uL (140-450); Red Cell Distribution Width 15.2 % (11.8-14.3); White Blood Cell 6.2 10^3/uL (4.4-10.8)
[2019-09-13 13:42] LABS: Urine Blood 1+ /uL (Negative); Urine Specific Gravity 1.017 (1.001-1.035)
[2019-09-13 13:53] LABS: Albumin 3.3 g/dL (3.4-5.0); Calcium 8.9 mg/dL (8.5-10.1); Magnesium 2.5 mg/dL (1.6-2.6); Potassium 3.8 mmol/L (3.5-5.1)
[2019-09-13 13:57] LABS: BUN/Creatinine Ratio 14.7; Bilirubin, Total 0.4 mg/dL (0.2-1.0)
[2019-09-13 16:30] VITALS: BP 130/63
== END | disposition home or self-care (01) ==
LOC: CHF HDHVI 12:01
PROVIDERS: ATTEND Internal Medicine Cardiovascular Disease
DX: E86.0 Dehydration (principal); D64.9 Anemia, unspecified; I11.0 Hypertensive heart disease with heart failure; I50.23 Acute on chronic systolic (congestive) heart failure; N39.0 Urinary tract infection, site not specified; E61.2 Magnesium deficiency; R42 Dizziness and giddiness; R53.83 Other fatigue; E11.9 Type 2 diabetes mellitus without complications; R30.9 Painful micturition, unspecified; Z79.899 Other long term (current) drug therapy
CPT/HCPCS: 36415; 80053; 81003; 82306; 82607; 83036; 83735; 83880; 85025; 87086; 87088; 87186; 96365; 96366; 96367; 96375; G0463; J1885; J1956; J7040

== ENCOUNTER → 2019-11-21 | Outpatient (CLI) | payer MEDICARE ==
[~2019-11-21] VITALS: Ht 30.5 cm; Wt 0.5 kg
[~2019-11-21] MED LIST changes: +AMLO-483 PO; -AMLO2.5T7 PO; -ASPirin 81 mg TAB ONE; +CYANOCOBALAMIN (B-12) 1000 MCG/1 ML VIAL IM ONE; +CYANOCOBALAMIN (B-12) 1000 MCG/1 ML VIAL ONE; -KETOROLAC TROMETH 30 MG/ML 1ML VIAL IV ONE; -KETOROLAC TROMETH 60MG/2ML VIAL ONE; -LISI40TA PO; +LISI40TA11 PO; -levoFLOXacin 500MG 100 ML IV ONE
[2019-11-21 09:20] VITALS: BP 128/53
--- NOTE | 2019-11-21 09:20 | NUR ---
CLINIC PT ARRIVED TO THE CHF CLINIC FOR EVAL AND TX. C/O FATIGUE. A/OX4,ARRIVED IN WHEELCHAIR, ASSISTED BY DAUGHTER. BREATHING IS EVEN AND UNLABORED.
--- NOTE | 2019-11-21 09:45 | NUR ---
IV insertion IV access obtained, via clean sterile technique by inserting 22 gauge catheter at after 1 attempt(s). IV secured properly. No trauma to site. Patient tolerated procedure well. LABS DRAWN AND SENT. NOTE INSERTED BY TOMY TATE
--- NOTE | 2019-11-21 09:55 | NUR ---
MVI STARTED @ 250ML/HR PER MD ORDERS. VSS. WILL CONTINUE TO MONITOR.
[2019-11-21 11:59] LABS: Basophils # (auto) 0.1 10 ^3/uL (0-0.2); Basophils % (auto) 0.8 % (0.0-2.0); Eosinophils # (auto) 0.4 10 ^3/uL (0-0.8); Eosinophils % (auto) 5.6 % (0.0-7.0); Hematocrit 34.4 % (36.0-46.0); Hemoglobin 11.4 g/dL (12.2-16.2); Lymphocytes # (auto) 1.3 10 ^3/uL (0.4-5.4); Lymphocytes % (auto) 18.2 % (10.0-50.0); Mean Corpuscular Hemoglobin 30.5 pg (28.0-32.0); Mean Corpuscular Hgb Conc. 33.1 g/dL (32.0-36.0); Mean Corpuscular Volume 92.2 fL (80.0-100.0); Monocytes # (auto) 0.6 10 ^3/uL (0-1.3); Monocytes % (auto) 8.4 % (0.0-12.0); Platelet Count (auto) 356 10^3/uL (140-450); Red Blood Cells 3.73 10^6/uL (4.0-5.20); Red Cell Distribution Width 14.5 % (11.8-14.3); White Blood Cell 7.4 10^3/uL (4.4-10.8)
[2019-11-21 12:04] LABS: Albumin 3.1 g/dL (3.4-5.0); Calcium 9.2 mg/dL (8.5-10.1); Magnesium 2.4 mg/dL (1.6-2.6); Potassium 3.8 mmol/L (3.5-5.1)
[2019-11-21 12:11] LABS: BUN/Creatinine Ratio 19.5; Bilirubin, Total 0.4 mg/dL (0.2-1.0); Total Protein 7.2 g/dL (6.4-8.2)
--- NOTE | 2019-11-21 12:34 | NUR ---
IV removal IV DC'd with sterile technique, catheter fully intact. Pressure dressing applied to site. Patient tolerated procedure well. Discharged with aftercare instructions per MD. NOTE: REMOVED BY KALIN TATE
[2019-11-21 12:40] VITALS: BP 141/65
--- NOTE | 2019-11-21 12:40 | NUR ---
Discharge Instructions See e-MAR for any mediations given with this visit. Patient education given on disease process. Patient verbalized understanding. Previous labs reviewed. Patient discharged in stable condition with after care instructions and follow up appointment. NOTE MVI IV [id number] ADMIN BY TOMY TATE VIT B12 IM ADMIN BY KALIN Saldaña DELTOID LOT#[id number] EXP 08/08
== END | disposition home or self-care (01) ==
LOC: CHF HDHVI 09:18
PROVIDERS: ATTEND Internal Medicine Cardiovascular Disease
DX: E86.0 Dehydration (principal); R53.83 Other fatigue; D64.9 Anemia, unspecified; I10 Essential (primary) hypertension; E83.40 Disorders of magnesium metabolism, unspecified; Z79.899 Other long term (current) drug therapy
CPT/HCPCS: 36415; 80053; 80061; 83735; 85025; 96365; 96366; 96372; G0463; J3420; J7040

== ENCOUNTER → 2019-12-21 | Outpatient (CLI) | payer MEDICARE ==
[2019-12-21 10:30] VITALS: BP 131/59
[2019-12-21 11:45] LABS: Basophils # (auto) 0.1 10 ^3/uL (0-0.2); Basophils % (auto) 0.6 % (0.0-2.0); Eosinophils # (auto) 0.5 10 ^3/uL (0-0.8); Lymphocytes # (auto) 1.2 10 ^3/uL (0.4-5.4); Monocytes # (auto) 0.6 10 ^3/uL (0-1.3); White Blood Cell 10.7 10^3/uL (4.4-10.8)
[2019-12-21 11:49] LABS: Eosinophils % (auto) 4.8 % (0.0-7.0); Hematocrit 34.5 % (36.0-46.0); Hemoglobin 11.8 g/dL (12.2-16.2); Lymphocytes % (auto) 11.5 % (10.0-50.0); Mean Corpuscular Hemoglobin 30.5 pg (28.0-32.0); Mean Corpuscular Hgb Conc. 34.3 g/dL (32.0-36.0); Neutrophils # (auto) 8.2 10 ^3/uL (1.6-8.6); Neutrophils % (auto) 77.1 % (37.0-80.0); Platelet Count (auto) 490 10^3/uL (140-450); Red Blood Cells 3.87 10^6/uL (4.0-5.20); Red Cell Distribution Width 14.2 % (11.8-14.3)
[2019-12-21 12:03] LABS: Albumin 2.9 g/dL (3.4-5.0); Calcium 9.1 mg/dL (8.5-10.1); Magnesium 2.4 mg/dL (1.6-2.6); Potassium 4.1 mmol/L (3.5-5.1)
[2019-12-21 12:08] LABS: BUN/Creatinine Ratio 13.5; Bilirubin, Total 0.5 mg/dL (0.2-1.0); Total Protein 7.5 g/dL (6.4-8.2)
[2019-12-21 13:15] VITALS: BP 140/63
== END | disposition home or self-care (01) ==
LOC: CHF HDHVI 10:50
PROVIDERS: ATTEND Internal Medicine Cardiovascular Disease
DX: E86.0 Dehydration (principal); R53.83 Other fatigue; D64.9 Anemia, unspecified; E46 Unspecified protein-calorie malnutrition; R06.02 Shortness of breath; I10 Essential (primary) hypertension; Z79.899 Other long term (current) drug therapy
CPT/HCPCS: 36415; 71046; 80053; 83735; 85025; 96365; 96366; 96372; G0463; J3420; J7040

== ENCOUNTER → 2020-03-26 | Outpatient (CLI) | payer MEDICARE ==
[~2020-03-26] MED LIST changes: -CYANOCOBALAMIN (B-12) 1000 MCG/1 ML VIAL IM ONE; -CYANOCOBALAMIN (B-12) 1000 MCG/1 ML VIAL ONE; -MULTIPLE VIT 10 ML IV ONE; -MVI in SODIUM CHLORIDE 0.9% 500 ML IVB ONE
[2020-03-26 16:04] LABS: Urine Blood Negative /uL (Negative); Urine Specific Gravity 1.019 (1.001-1.035)
== END | disposition home or self-care (01) ==
LOC: LAB 11:47
PROVIDERS: ATTEND Internal Medicine Cardiovascular Disease
DX: R94.4 Abnormal results of kidney function studies (principal); N39.0 Urinary tract infection, site not specified
CPT/HCPCS: 36415; 81003; 82565; 87086

== ENCOUNTER → 2020-03-31 | Outpatient (CLI) | payer MEDICARE ==
[2020-03-31 11:07] VITALS: BP 137/64
[2020-03-31 12:00] VITALS: BP 127/52
[2020-03-31 16:09] LABS: BUN/Creatinine Ratio 13.5; Calcium 8.1 mg/dL (8.5-10.1); Magnesium 2.4 mg/dL (1.6-2.6); Potassium 3.9 mmol/L (3.5-5.1)
[2020-03-31 16:15] LABS: Basophils # (auto) 0.1 10 ^3/uL (0-0.2); Basophils % (auto) 0.6 % (0.0-2.0); Eosinophils # (auto) 0.8 10 ^3/uL (0-0.8); Eosinophils % (auto) 8.7 % (0.0-7.0); Hematocrit 30.1 % (36.0-46.0); Lymphocytes # (auto) 1.1 10 ^3/uL (0.4-5.4); Lymphocytes % (auto) 12.8 % (10.0-50.0); Mean Corpuscular Hemoglobin 29.6 pg (28.0-32.0); Mean Corpuscular Hgb Conc. 33.1 g/dL (32.0-36.0); Mean Corpuscular Volume 89.5 fL (80.0-100.0); Monocytes # (auto) 0.5 10 ^3/uL (0-1.3); Monocytes % (auto) 5.9 % (0.0-12.0); Neutrophils # (auto) 6.5 10 ^3/uL (1.6-8.6); Platelet Count (auto) 318 10^3/uL (140-450); Red Blood Cells 3.37 10^6/uL (4.0-5.20); Red Cell Distribution Width 15.9 % (11.8-14.3)
== END | disposition home or self-care (01) ==
LOC: Rad HDHVI 10:55
PROVIDERS: ATTEND Internal Medicine Cardiovascular Disease
DX: C34.90 Malignant neoplasm of unspecified part of unspecified bronchus or lung (principal); R91.8 Other nonspecific abnormal finding of lung field; R59.1 Generalized enlarged lymph nodes; J90 Pleural effusion, not elsewhere classified; J43.9 Emphysema, unspecified; I25.10 Atherosclerotic heart disease of native coronary artery without angina pectoris; I70.0 Atherosclerosis of aorta; I10 Essential (primary) hypertension; D64.9 Anemia, unspecified; K76.89 Other specified diseases of liver; M48.54XA Collapsed vertebra, not elsewhere classified, thoracic region, initial encounter for fracture; M47.9 Spondylosis, unspecified; R06.02 Shortness of breath; Z90.49 Acquired absence of other specified parts of digestive tract
CPT/HCPCS: 36415; 71260; 80048; 83735; 85025; G0463; Q9967